=== PATIENT | male | born 1975 | race Caucasian/White ===

== ENCOUNTER 2018-10-22 14:35 | Emergency (ER) | payer OTHER, SELFPAY ==
[2018-10-22 14:36] VITALS: BP 161/96; PULSE 66; RESP 16; TEMP 36.7; O2SAT 96; BMI 34.4
[2018-10-22] MEDS: Diphth,Pertuss(Acell),Tet Vac 0.5 ML Vial IM (15:07)
--- NOTE | 2018-10-22 15:20 | ED.VISSUMM ---
- ER Visit Summary Date of Service: 10/22/18 Chief Complaint: Middle finger laceration History of Present Illness: The patient is a 43 M who has a left middle finger laceration. He was using a knife when he cut the finger. His last tetanus is unknown. He states he did have a good amount of bleeding but is since stopped after direct pressure. Physical Examination: Patient has a 2 cm laceration in a semi-lunar shape on the finger pad of the left middle finger. No bleeding at this time. No nail involvement. Test Results: None performed Emergency Department Course and Treatment: The patient's tetanus was updated. He had a laceration repair. Under sterile conditions lidocaine was used to anesthetize the area. 6, 5?0 simple nylon interrupted sutures were placed. There is good wound approximation. He will have these out in 10-14 days. He will keep area clean and dry. Treatment Plan: [] Disposition: Discharge Impression: Left middle finger laceration, 2 cm Laceration repair by ED physician This note was generated with [employer] dictation software. It may contain incorrect words, spelling, and punctuation that were not noted in review of the chart prior to signing ED Disposition - Plan for ED Patient: Chief Complaint: Laceration Referrals: Asim Carson [Primary Care Provider] -
--- NOTE | 2018-10-22 15:22 | ED.DEP ---
ED Disposition - Plan for ED Patient: Disposition: Home or Assisted Living Chief Complaint: Laceration Instructions: ED Laceration All Referrals: Asim Carson [Primary Care Provider] -
--- OUTSIDE RECORDS SUMMARY | 2019-01-24 08:01 | XMS RPT_ITS ---
:1975 Author Organization OHIP Care Team Providers Name Role Phone Henry Nina Attending Unavailable Gabriela Sheets Primary Care Unavailable Desmond Craig Attending Unavailable Gabriela Sheets Referring Unavailable Desmond Craig Attending Unavailable Gabriela Sheets Referring Unavailable Lois Gaspar Attending Unavailable Gabriela Sheets Referring Unavailable Gabriela Sheets Primary Care Unavailable GABRIELA SHEETS K Primary Care Unavailable PROBLEMS PROBLEMS DATE TYPE CONDITION / CODE ATTENDING STATUS SOURCE 07/18/2018 Admitting Left lower Chasity Lois Active [facility] Diagnosis quadrant pain / System R10.32(ICD-10) Repository 01/11/2018 Active Nondisplaced NA Active [facility] Other proximal phalanx [place] of right lesser Repository toe(s), initial encounter for closed fracture / S92.514A(ICD-10) 01/11/2018 Admitting Unknown / NA Active [facility] diagnosis UNK(Unknown) Health System Repository PROCEDURES PROCEDURES No Procedure Records FoundRESULTS RESULTS URGENT CARE VISIT Observed: 11/02/2018 Status: F Source: [place] RE[place] 3:14 PM [facility] REPOSITORY [facility] [address] [place] [address] OFFICE VISIT Date of Service: 11/02/18 MR#: [id number] Acct: [id number] Name: BRITNI LOREDO Rep #: [id number] : 1975 Provider: Desmond SPRING Age/Sex: 43/M Location: [facility] Status: Signed Intake Vital Signs11/02/18 Height 6 ft 1 in Intake Visit Reasons: FINGLER LAC F/U [place] Allergies No Known Allergies Allergy (Verified 10/26/18 10:28) Medications Omeprazole [Prilosec] 10 mg PO DAILY 10/22/18 [History Confirmed 10/26/18] atorvastatin 10 mg tablet 10 mg PO QHS 10/26/18 [History Confirmed 10/26/18] escitalopram 10 mg tablet PO 30 Days #30 tab 10/26/18 [History Confirmed 10/26/18] PFSH Medical History Fatigue (Acute) Migraine (Acute) Family History Other Cancer Diabetes Heart disease Hypertension Social History Smoking Status: Never smoker alcohol intake: never HPI HPI Details: BRITNI LOREDO, is a 43 M who presents to the office today for follow-up of a work-related injury which occurred on 10/22/2018. On that date the patient sustained a left middle finger laceration while at work and had laceration repair done here. Patient states he has had no complications with the finger and denies any numbness/tingling or loss of range of motion. He has not noticed any redness, swelling or pain other than when touched. No other associated symptoms or alleviating/aggravating factors. ROS Const Constitutional: No chills, fever(s), fatigue or abnormal sleep pattern Resp Respiratory: No shortness of breath or chest congestion Cardio Cardiology: No chest pain at rest, chest pain with exertion or shortness of breath Musc Musculoskeletal: No joint pain, tingling, stiffness, numbness or limited range of motion Skin Skin: Positive for wounds (Left middle finger laceration with sutures); no lesions Neuro Neurology: No tingling or numbness Psych Psychiatric: No abnormal sleep pattern Endo Endocrine: No fatigue Exam Const General: cooperative, healthy appearing Resp Effort AND Inspection: normal respiratory effort Auscultation: Bilateral: Clear to Auscultation Cardio Palpation: normal PMI Rate: regular rate Rhythm: regular rhythm Skin Other: Left middle finger laceration to the tip of the finger without nail involvement which appears to be healing well. All sutures were removed without complication with wound edges remaining well approximated. No erythema, warmth or drainage from the laceration site. Patient continues to have full sensation to the fingertip as well as appropriate capillary refill. Neuro General: alert, CN's II-XI intact bilaterally Psych Appearance: grossly normal Mental Status: mental status grossly normal Assessment AND Plan Problems 1. Laceration without foreign body of left middle finger without damage to nail, initial encounter S61.213A Plan Sutures removed without complication. [employer] filled out releasing patient back to work today without restrictions. Patient advised he no longer needs a follow-up in this office unless he should have exacerbation of symptoms or new concerns. Patient advised of appropriate wound management as well as potential red flags including but not limited to signs of infection and when appropriate to report to the ED. Patient verbalized understanding and agreement with all the above. Coding Level of Care Code Off vis,est,level 3 Diagnoses Laceration without foreign body of left middle finger without damage to nail, initial encounter S61.213A 11/02/18 5184 <Electronically signed by Desmond SPRING> Date Desmond SPRING Cosigner Signature: Date (if applicable) CC: URGENT CARE VISIT Observed: 10/26/2018 Status: F Source: [place] REPORT 11:[address] [address] OFFICE VISIT Date of Service: 10/26/18 MR#: [id number] Acct: [id number] Name: BRITNI LOREDO Rep #: [id number] : 1975 Provider: Desmond SPRING Age/Sex: 43/M Location: [facility] Status: Signed Intake Vital Signs10/26/18 Body Mass Index (BMI) 34.4 10/26/18 Height 6 ft 1.5 in 10/26/18 Weight: 286 lb Intake Visit Reasons: ED F/U FINGER LAC [place] Allergies No Known Allergies Allergy (Verified 10/26/18 10:28) Medications Omeprazole [Prilosec] 10 mg PO DAILY 10/22/18 [History Confirmed 10/26/18] atorvastatin 10 mg tablet 10 mg PO QHS 10/26/18 [History Confirmed 10/26/18] escitalopram 10 mg tablet PO 30 Days #30 tab 10/26/18 [History Confirmed 10/26/18] PFSH Medical History Fatigue (Acute) Migraine (Acute) Family History Other Cancer Diabetes Heart disease Hypertension Social History Smoking Status: Never smoker alcohol intake: never HPI HPI Details: BRITNI LOREDO, is a 43 M who presents to the office today for follow-up of a work-related injury which occurred on 10/22/2018. Patient was initially evaluated at [facility] ED and diagnosed with a left middle finger laceration which occurred while at work. He received laceration repair via sutures and comes today for concern of possible infection. Patient states that the finger has felt more warm to than his other surrounding fingers and notes increased swelling. He denies any numbness, tingling or loss of range of motion to the finger. He has had no fever, chills, sweats. No nausea, vomiting, diarrhea. No other associated symptoms or alleviating/aggravating factors. ROS Const Constitutional: No chills, fever(s), fatigue or abnormal sleep pattern Resp Respiratory: No shortness of breath or chest congestion Cardio Cardiology: No chest pain at rest, chest pain with exertion or shortness of breath Musc Musculoskeletal: No joint pain, tingling, stiffness, numbness or limited range of motion Skin Skin: Positive for wounds (Left middle finger laceration with sutures); no lesions Neuro Neurology: No behavioral changes, confusion, tingling or numbness Psych Psychiatric: No behavioral changes, No confusion, No abnormal sleep pattern Endo Endocrine: No fatigue Exam Const General: cooperative, healthy appearing Resp Effort AND Inspection: normal respiratory effort Auscultation: Bilateral: Clear to Auscultation Cardio Palpation: normal PMI Rate: regular rate Rhythm: regular rhythm Skin Other: Left middle finger laceration to the tip of the finger without nail involvement. There is very minimal increased swelling to the tip of the left middle finger however the wound appears to be healing appropriately without complication. All wound edges are well well approximated with no erythema, warmth, streaking or induration. There is pain to palpation over the wound site. Neuro General: alert, CN's II-XI intact bilaterally Psych Appearance: grossly normal Mental Status: mental status grossly normal Assessment AND Plan Problems 1. Laceration without foreign body of left middle finger without damage to nail, initial encounter S61.213A Status Acute Plan [employer] filled out releasing patient back to work today without restrictions. Patient advised of typical wound healing process as well as potential red flags including signs of infection and when appropriate to report to the ED. Patient is to follow back up here on 11/02/2018 for further evaluation and likely suture removal. Patient verbalized understanding and agreement with all the above. Coding Level of Care Code Off vis,new,level 3 Diagnoses Laceration without foreign body of left middle finger without damage to nail, initial encounter S61.213A 10/26/18 1134 <Electronically signed by Desmond SPRING> Date Desmond SPRING Cosigner Signature: Date (if applicable) CC: EMERGENCY DEPARTMENT Observed: 10/22/2018 Status: F Source: [place] SUMMARY 3:22 PM [facility] REPOSITORY [facility] Medical Records Department [address] [place] [address] Emergency Department Summary 10/22/18 1520 MR#: [id number] Acct: [id number] Name: RAYRAY LOREDOROE Potts Rep #: [id number] : 1975 43 From: Henry Nina MD PCP: Gabriela Sheets Status: PRE ER - ER Visit Summary Date of Service: 10/22/18 Chief Complaint: Middle finger laceration History of Present Illness: The patient is a 43 M who has a left middle finger laceration. He was using a knife when he cut the finger. His last tetanus is unknown. He states he did have a good amount of bleeding but is since stopped after direct pressure. Physical Examination: Patient has a 2 cm laceration in a semi- lunar shape on the finger pad of the left middle finger. No bleeding at this time. No nail involvement. Test Results: None performed Emergency Department Course and Treatment: The patient's tetanus was updated. He had a laceration repair. Under sterile conditions lidocaine was used to anesthetize the area. 6, 5 0 simple nylon interrupted sutures were placed. There is good wound approximation. He will have these out in 10-14 days. He will keep area clean and dry. Treatment Plan: [] Disposition: Discharge Impression: Left middle finger laceration, 2 cm Laceration repair by ED physician This note was generated with [employer] dictation software. It may contain incorrect words, spelling, and punctuation that were not noted in review of the chart prior to signing ED Disposition - Plan for ED Patient: Chief Complaint: Laceration Referrals: Gabriela Sheets [Primary Care Provider] - What to do if you have Problems For any increased pain, shortness of breath, bleeding, nausea or vomiting, chest pain, or any unexpected problems, contact your Primary Care Provider. Call [facility] ([phone]) or report to the closest Emergency Room. Call 911 if necessary. 10/22/18 1522 <Electronically signed by Henry Nina MD> Date Henry Nina MD Cosigner Signature (If Indicated): Date CC: Gabriela Sheets DISCHARGE INSTRUCTION Observed: 10/22/2018 Status: F Source: [place] 3:22 PM [facility] REPOSITORY [facility] Medical Records Department [address] [place] [address] Discharge Instruction 10/22/18 1522 MR#: [id number] Acct: [id number] Name: BRITNI LOREDO Rep #: [id number] : 1975 43 From: Henry Nina MD PCP: Gabriela Sheets Status: PRE ER ED Disposition - Plan for ED Patient: Disposition: Home or Assisted Living Chief Complaint: Laceration Instructions: ED Laceration All Referrals: Gabriela Sheets [Primary Care Provider] - What to do if you have Problems For any increased pain, shortness of breath, bleeding, nausea or vomiting, chest pain, or any unexpected problems, contact your Primary Care Provider. Call [facility] ([phone]) or report to the closest Emergency Room. Call 911 if necessary. 10/22/18 1522 <Electronically signed by Henry Nina MD> Date Henry Nina MD Cosigner Signature (If Indicated): Date CC: Gabriela Sheets CT ABDOMEN/PELVIS W/ Observed: 07/18/2018 Status: F Source: [employer] CONTRAST 2:17 PM SYSTEM REPOSITORY Patient Name: BRITNI LOREDO CT Exam Date/Time 07/18/2018 13:47:[address] Abdomen/Pelvis w/ IV Contrast (IV Onl Ordering Physician MD CARTER LISA MARIE Accession Number [id number] CPT4 Codes 40069 (CT Abdomen/Pelvis w/ IV Contrast (IV Onl), Q9967 (), Q9966 () Reason For Exam LLq pain Report CT of the abdomen and pelvis with intravenous contrast, 07/18/2018. Reason for examination: Left lower quadrant pain. COMPARISON: None available. TECHNIQUE: 2.5 mm axial images were obtained through the abdomen and pelvis following intravenous administration of 75 mL of Isovue 370. Oral contrast was administered. Coronal and sagittal reconstructions were created and reviewed. FINDINGS: There is mild scarring or atelectasis in the lung bases. ABDOMEN: No lesion is identified in the liver, spleen, pancreas, adrenal glands, or kidneys. There is no bowel distention. There are inflammatory changes around the mid to distal descending colon with mild wall thickening near the junction of the descending colon and sigmoid colon. There are diverticula in these areas. Findings are suggestive of acute diverticulitis. There is no evidence of bowel perforation or abscess formation. No lymphadenopathy or abnormal fluid collections identified. Pelvis: No mass or lymphadenopathy is noted. No abnormal fluid collection is identified. There are degenerative changes in the lower thoracic and lumbar spine. IMPRESSION: Findings consistent with acute diverticulitis involving the mid to distal descending colon. Report Dictated on Workstation: [employer] Final Dictating Physician: MD WELCH JOE M Signed Date and Time: 07/18/2018 2:32 pm Signed by: MD WELCH JOE M Transcribed Date and Time: 07/18/2018 2:33 HEMOGRAM W/ AUTODIFF Collected: 07/18/2018 Status: F Source: [employer] 11:18 AM SYSTEM REPOSITORY TYPE CODE TESTS RESULT OUT OF REFERENCE UNITS RANGE LAB IWBC 3.6-10.7 10*3/uL WBC High 13.9 LAB RBC 4.40-5.90 10*6/uL RBC Normal 5.12 LAB HGB 13.0-18.0 g/dL Hemoglobin Normal 15.9 LAB HCT 40.0-52.0 % Hematocrit Normal 46.8 LAB MCV 80.0-98.0 fL MCV Normal 91.4 LAB MCH 26.0-34.0 pg MCH Normal 31.1 LAB MCHC 32.0-36.0 % MCHC Normal 34.0 LAB RDW 11.5-14.5 % RDW Normal 13.4 LAB PLT 140-440 10*3/uL Platelet Normal 218 LAB MPV 7.4-10.4 fL MPV Normal 7.7 LAB GRAN% 40.0-80.0 % Granulocytes High 81.6 LAB LYMP% 20.0-40.0 % Low Lymphocytes 9.2 LAB MONO% 2.0-10.0 % Monocytes Normal 8.7 LAB EOS% 1.0-6.0 % Low Eosinophils 0.3 LAB BAS% 0.0-2.0 % Basophils Normal 0.2 LAB ANC 1.8-7.0 10*3/uL Abs High Neutrophile Cnt 11.4 LAB ALC 1.0-4.3 10*3/uL Abs Lymph Cnt Normal 1.3 LAB AMC 0.0-0.8 10*3/uL Abs Monocyte High Cnt 1.2 LAB AEC 0.0-0.5 10*3/uL Abs Eosin Cnt Normal 0.0 LAB ABC 0.0-0.2 10*3/uL Abs Baso Cnt Normal 0.0 Performed By: #### HEMTATIANA CMP3 #### [facility] [address] [place] [address] COMP METABOLIC PANEL Collected: 07/18/2018 Status: F Source: [employer] 11:18 AM SYSTEM REPOSITORY TYPE CODE TESTS RESULT OUT OF RANGE REFERENCE UNITS LAB NA3 137-145 mmol/L Sodium Normal 139 LAB K3 3.5-5.1 mmol/L Normal Potassium 4.4 LAB CL3 98-107 mmol/L Chloride Normal 100 LAB CO23 22-30 mmol/L High Carbon Dioxide 31 LAB ANIN3 NA Anion Gap 8 LAB GLUC3 70-100 mg/dL High Glucose 118 LAB BUN3 7-20 mg/dL Urea Normal Nitrogen 15 LAB CRET3 0.52-1.25 mg/dL Normal Creatinine 0.96 LAB GF3BR >60 mL/min eGFR > 60.0 LAB GF3WR >60 mL/min eGFR OTHER > 60.0 Result Comment: Source- MDRD equation with creatinine calibration to IDMS(NKDEP) eGFR not recommended for drug dose adjustment LAB CA3 8.4-10.4 mg/dL Calcium Normal 9.6 LAB ALB3 3.5-5.0 g/dL Albumin, Serum Normal 5.0 LAB TP3 6.3-8.2 g/dL Total Protein Normal 8.1 LAB BILT3 0.2-1.3 mg/dL High Bilirubin,Total 1.5 LAB ALKP3 38-126 U/L Alkaline Normal Phosphatase 76 LAB ALT3 13-69 U/L ALT (SGPT) Normal 36 LAB AST3 15-46 U/L AST (SGOT) Normal 15 Performed By: #### HEMDF, CMP3 #### [facility] [address] [place] [address] FOOT 3V AP/LAT/OBL Observed: 01/11/2018 Status: F Source: [facility] 7:50 PM HEALTH SYSTEM REPOSITORY Performed at [facility] APPROVED BY: Nazia Phillips MD EXAM TITLE: FOOT 3V AP/LAT/OBL RIGHT DATE: 01/11/2018 19:49 INDICATION: Injury to the right fifth toe with pain and swelling COMPARISON: None. FINDINGS: There is an oblique nondisplaced fracture at the base of the proximal phalanx of the fifth toe. This appears to communicate with the articular surface. No dislocation or additional fracture is identified. Soft tissues appear normal. IMPRESSION: Fracture of the small toe. ED NOTE Observed: 01/11/2018 Status: COMPLETED Source: [place] 7:48 PM CLINIC OTHER CAMPUS REPOSITORY HNO ID: [id number] Author: Rajan English) ELISHA Garsia Service: Emergency Medicine Author Type: Registered Nurse Type: ED Notes Filed: 01/11/2018 7:49 PM Note Text: Patient presents to ED with bruising to fifth digit to right foot. Patient states dropped a case of Edison D orange juice this morning. No malformations. Patient states tender during ambulation. Patient denies ice pack. Call light within reach. ED PROV NOTE Observed: 01/11/2018 Status: COMPLETED Source: [place] 7:42 PM CLINIC OTHER CAMPUS REPOSITORY HNO ID: [id number] Author: Reece Mae) SAW Potts Service: Emergency Medicine Author Type: Physician User Interface Artist Type: ED Provider Notes Filed: 01/11/2018 8:29 PM Note Text: ED Provider Note Patient Name: Britni Loredo SERVICE DATE: 01/11/18 History Patient presents with: Toe Injury: fifth digit of right foot HPI Comments: 43-year-old male presents to the chief complaint of right fifth toe injury. Patient states this morning he stubbed his right fifth digit on a case of pop. He states that he has been walking on it throughout the day. Patient states that the area has swelling and bruising. He states that he is still able to walk on it but it causes him pain. He denies numbness/tingling, decreased range of motion, deformity, redness or any other injuries/complaints at this time. History provided by: Patient sketch maker used: No PAST MEDICAL HISTORY Diagnosis Date - Acid reflux - Hypercholesteremia - Migraine PAST SURGICAL HISTORY Procedure Laterality Date - NECK SURGERY HX fusion No family history on file. Social History Social History Main Topics - Smoking status: Never Smoker - Smokeless tobacco: Never Used - Alcohol use Yes Comment: rarely - Drug use: No - Sexual activity: Not Asked ALLERGIES No Known Allergies Review of Systems Constitutional: Negative for chills and fever. HENT: Negative for drooling and ear discharge. Eyes: Negative for discharge and redness. Respiratory: Negative for cough and shortness of breath. Cardiovascular: Negative for chest pain, palpitations and leg swelling. Gastrointestinal: Negative for abdominal pain, nausea and vomiting. Genitourinary: Negative for dysuria and flank pain. Musculoskeletal: Positive for arthralgias. Negative for gait problem, joint swelling, neck pain and neck stiffness. Skin: Negative for pallor, rash and wound. Neurological: Negative for syncope, weakness and numbness. Psychiatric/Behavioral: Negative for behavioral problems. The patient is not nervous/anxious. Physical Exam BP 140/95 Pulse 73 Temp (Src) 97.3 (Oral) Resp 14 Ht 6' 1 (1.85m) Wt 298 lb (135.2kg) SpO2 98% BMI 39.32 kg/(m2). Physical Exam Constitutional: He appears well-developed and well-nourished. No distress. HENT: Head: Normocephalic and atraumatic. Eyes: Pupils are equal, round, and reactive to light. Right eye exhibits no discharge. Left eye exhibits no discharge. Neck: Normal range of motion. Cardiovascular: Normal rate, regular rhythm and normal heart sounds. Pulmonary/Chest: Effort normal and breath sounds normal. No respiratory distress. He has no wheezes. He exhibits no tenderness. Musculoskeletal: Normal range of motion. He exhibits no edema or tenderness. 5th digit on the R lower extremity has ecchymosis and mild edema. Area is TTP throughout. Patient is able to flex and extend the toes without difficulty. 5/5 strength with dorsiflexion and plantarflexion. Patient is ambulatory in the ED. Pulses intact. Sensation intact. Capillary refill less than 2 seconds. Neurological: He is alert. Skin: Skin is warm and dry. No rash noted. He is not diaphoretic. No erythema. No pallor. Psychiatric: He has a normal mood and affect. His behavior is normal. Nursing note and vitals reviewed. 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 FINDINGS: There is an oblique nondisplaced fracture at the base of the proximal phalanx of the fifth toe. This appears to communicate with the articular surface. No dislocation or additional fracture is identified. Soft tissues appear normal. IMPRESSION: Fracture of the small toe. Procedures Medical Decision Making / ED Course Course: Vital signs were reviewed. Triage records were reviewed. Medical records were reviewed. Nursing notes were reviewed and incorporated. ED Course Pt is afebrile and hemodynamically stable. LABS: xray shows no oblique non displaced fracture of the small toe At this time, the most likely Dx is toe fracture. Other Dxs considered but unlikely d/t HANDP, labs and imaging findings: dislocation Pt discharged home d/t good condition, ara tape applied. Patient advised to take tylenol/motrin as needed. Use RICE therapy Pt instructed to f/u with PCP this week and encouraged to return to ED if symptoms worsensuch as increased swelling, increased redness, difficulty ambulating, numbness/tingling or if new symptoms develop. Patient vocalizes understanding and is agreeable to the plan. Encounter Diagnosis ICD-10-CM 1. Closed nondisplaced fracture of proximal phalanx of lesser toe of right foot, initial encounter S92.514A Plan The Patient was DISCHARGED: Counseled patient regarding radiology results AND suspected diagnosis AND need for follow-up. Discharged home with verbal and written instructions. They were instructed to return as needed for persistent or worsening symptoms or any new concerns. Condition at time of disposition: stable SIGNATURE: JILLIAN Powell) SAW Potts 01/11/182028 ED NOTE Observed: 01/11/2018 Status: COMPLETED Source: [place] 7:36 PM CLINIC OTHER CAMPUS REPOSITORY O ID: [id number] Author: Agnes Potts (Rn) ELISHA Rowell Service: Emergency Medicine Author Type: Registered Nurse Type: ED Notes Filed: 01/11/2018 7:36 PM Note Text: Pt states he hit fifth digit of right foot on a case of edison D this am, progressively worse pain, swelling, and ecchymosis, able to ambulate to triage ALLERGIES ALLERGIES DATE TYPE / CODE NAME / CODE REACTION SEVERITY SOURCE 10/26/2018 Drug No Known Unknown [facility] Allergy/416 Allergies/[id number] Hospital [id number](SNOM 0388(RXNORM) Repository ED CT) Drug NO KNOWN [facility] Class/03998 ALLERGIES Other [place] 1003(SNOMED Repository CT) [id number] NO KNOWN [place] [address](SNOMED [facility] CT) Repository ENCOUNTERS ENCOUNTERS ADMIT/DISCHARGE ACCOUNT NUMBER ADMITTING ENCOUNTER LOCATION SOURCE CLASS 11/02/2018/11/02/20 [id number] Ambulatory BMSBuilding: [place] 18 [facility] Repository 10/26/2018/10/26/20 [id number] Ambulatory BMSBuilding: [place] 18 [facility] Repository 10/22/2018/10/22/20 [id number] Emergency [address] ding:ED Repository 07/18/2018 [id number] Ambulatory [facility] Repository 01/11/2018/01/12/20 [id number] Emergency [address] Other [place] Repository 01/11/2018/01/12/20 [id number] Emergency [address] MEDICAL Repository CENTERBuildi ng:AKEDBRoom : EDBed: 04 PAYERS PAYERS ENCOUNTER GUARANTOR PAYER SUBSCRIBER SOURCE 11/02/2018 BRITNI Potts Primary Insurance:SELF BRITNI Cervantes [id number] [facility] Number: [id number] [place], [place] [id number] Repository [address]Zrw: 330) Date:2405-02-76YRPOPWY [phone] () [id number] [facility] [address], [place] [address]PM: 11/02/2018 Secondary NOT GIVENUNK [place] Insurance:SELF PAY [facility] Number: Effective Repository Date:2018-11-02 10/26/2018 CHRISTASTRID M Primary Insurance:SELF BRITNI Potts Helen [id number] INS [facility] MULLETTDOB: Community [place] Number: [id number] [place], [place] [id number] Repository [address]Col: ([phone]) Date:5261-12-24EPTVUOM [phone] () [id number] [facility] [address], [place] [address]ME: 10/26/2018 Secondary NOT GIVENUNK Helen Insurance:SELF PAY [facility] Number: Effective Repository Date:2018-10-26 10/22/2018 BRINTI M Primary Insurance:SELF BRITNI Potts [place] [id number] [facility] [place] Number: [id number] [place], [place] [id number] Repository [address]Wpl: ([phone]) Date:6253-47-18ZASDWDN [phone] () [facility] [address]VBUDOGGXIOPQ, [place] [address]NO: 10/22/2018 Secondary CHRISTLIZETTEER M Helen Insurance:[facility] MULLETTDOB: [facility] [address]Lsqhrd [id number] Hospital Number: Repository [id number] Date:4966-39-29[address], [place] [address]TS: 10/22/2018 Tertiary NOT GIVENUNK Helen Insurance:SELF PAY [facility] Number: Effective Repository Date:2018-10-22 07/18/2018 Christlizetteer M Primary Christlizetteer M [facility] MullettDOB: Insurance:United MullettDOB: System [id number] [place] [id number] Repository [place] Number: Effective DriveBarbert, Date: [place] [address]Ubb: () 01/11/2018 CHRISTOPHER Primary Insurance:[facility] CHRISTASTRID [facility] MULLETTDOB: [facility] MULLETTDOB: Health [facility] [id number] Number: [id number] [id number] [place], [place] Date: [address]Wys: ()
== END 2018-10-22 15:48 | disposition home or self-care (01) ==
PROVIDERS: Emergency Provider Emergency Medicine; Family Provider Family Medicine Geriatric Medicine; PCP Family Medicine Geriatric Medicine
DX: S61.213A Laceration without foreign body of left middle finger without damage to nail, initial encounter (principal); W26.0XXA Contact with knife, initial encounter; Y93.9 Activity, unspecified; Y92.9 Unspecified place or not applicable; Y99.9 Unspecified external cause status; Z23 Encounter for immunization; K21.9 Gastro-esophageal reflux disease without esophagitis; Z79.899 Other long term (current) drug therapy
CPT/HCPCS: 12001; 90471; 90715; 99284